=== PATIENT | female | born 1960 | race Caucasian/White ===

== ENCOUNTER 2022-09-11 10:58 | Day surgery (SDC) | payer MEDICAID ==
[~2022-09-11] VITALS: Ht 162.6 cm; Wt 69.4 kg
[2022-09-11 11:28] VITALS: BP 151/98
[2022-09-11] MEDS ORDERED: normal saline 1000ml 1,000 ML IV PRN (11:30)
[2022-09-11] MEDS ORDERED: MAGN400T52 PO (11:48)
[2022-09-11] MEDS ORDERED: POTA10CA45 PO (11:48)
[2022-09-11] MEDS ORDERED: SPIR50TA5 PO (11:48)
[2022-09-11] MEDS ORDERED: METO25TA6 PO (11:48)
[2022-09-11] MEDS ORDERED: PANT40TA54 PO (11:48)
[2022-09-11 12:11] LABS: BASOPHILS % (AUTO) 0.1 % (0-1); EOSINOPHILS % (AUTO) 0.1 % (0-6); HEMATOCRIT 26.3 % (35.0-45.0); LYMPHOCYTES # (AUTO) 0.7 X10'3 (1.1-4.8); LYMPHOCYTES % (AUTO) 7.1 % (21-51); MEAN CORPUSCULAR HEMOGLOBIN 22.2 PG (27.0-31.0); MEAN CORPUSCULAR HGB CONC 30.4 g/dL (33.0-36.5); MEAN CORPUSCULAR VOLUME 73.2 FL (78-98); MEAN PLATELET VOLUME 6.6 FL (7.4-10.4); MONOCYTES # (AUTO) 0.5 X10'3 (0-0.9); MONOCYTES % (AUTO) 4.8 % (2-12); NEUTROPHILS # (AUTO) 8.4 X10'3 (1.8-7.7); NEUTROPHILS % (AUTO) 87.9 % (42-75); PLATELET COUNT 474 X10'3 (140-440); RED CELL DISTRIBUTION WIDTH 26.4 % (11.5-14.5); WHITE BLOOD COUNT 9.6 X10'3 (4.5-11.0)
[2022-09-11] MEDS ORDERED: fentaNYL/PF 50MCG/1 ML 2ML syringe ONE (12:42)
[2022-09-11] MEDS ORDERED: heparin sodium, porcine/PF 100unit/ml 5ML syringe ONE (12:42)
[2022-09-11] MEDS ORDERED: midazolam 1 mg/ML 2ml injection ONE (12:42)
[2022-09-11 13:30] VITALS: BP 154/94
--- NOTE | 2022-09-11 13:30 | NUR ---
Bedside report received from NANCY [place]. Patient with new implanted port to right upper chest. Site stable with no bleeding. Vital signs stable. Patient denies nausea. Will continue to monitor.
[2022-09-11 13:45] VITALS: BP 162/99
[2022-09-11 14:00] VITALS: BP 138/88
[2022-09-11 14:15] VITALS: BP 166/110
[2022-09-11 16:05] LABS: ANISOCYTOSIS 3+; HYPOCHROMASIA 2+; MICROCYTOSIS 1+; PLATELET ESTIMATE INCREASED; TOTAL CELLS COUNTED 100
[2022-09-11 16:09] LABS: SCHISTOCYTES FEW
[2022-09-11 16:10] LABS: ELLIPTOCYTES FEW; POLYCHROMASIA FEW
== END 2022-09-11 14:35 | disposition home or self-care (01) ==
LOC: SSTAY O 10:58
PROVIDERS: ATTEND Radiology Vascular & Interventional Radiology
DX: C21.1 Malignant neoplasm of anal canal (principal); Z98.890 Other specified postprocedural states; Z88.5 Allergy status to narcotic agent; Z87.891 Personal history of nicotine dependence; Z79.899 Other long term (current) drug therapy
CPT/HCPCS: 36415; 36561; 76937; 77001; 85025; 85610; 99152; C1788; C1894; J1642; J2250; J3010; J7030; 85007; 99153; A4620